=== PATIENT | female | born 1990 | race Caucasian/White ===

== ENCOUNTER 2017-11-22 20:06 | Emergency (ER) | payer SELFPAY ==
[2017-11-22 20:17] VITALS: BP 136/93
--- NOTE | 2017-11-22 21:01 | UC ---
Laceration HPI - HPI Summary HPI Summary: Patient presents to the with a skin avulsion to the left dorsum of the PIP joint which measures approximately 0.7 cm. 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 Bleeding is well controlled. She denies any blood thinners. She has not taken any medication for relief. Full range of motion without pain or limitations. Denies any numbness or tingling. - History Of Current Complaint Chief Complaint: UCLaceration Stated Complaint: FINGER LACERATION Time Seen by Provider: 11/22/17 20:19 Hx Obtained From: Patient Hx Last Menstrual Period: 11/17/17 Mechanism Of Injury: Sharp Trauma Onset/Duration: Sudden Onset Severity: Mild Pain Intensity: 2 Pain Scale Used: 0-10 Numeric Aggravating Factors: Nothing Related History: Occupational Injury - Allergies/Home Medications Allergies/Adverse Reactions: Allergies Allergy/AdvReac Type Severity Reaction Status Date / Time No Known Allergies Allergy Verified 11/22/17 20:17 PMH/Surg Hx/FS Hx/Imm Hx Previously Healthy: Yes - Surgical History Surgical History: None - Family History Known Family History: Positive: Unknown - Social History Occupation: Employed Full-time Lives: Alone Alcohol Use: Rare Substance Use Type: None Smoking Status (MU): Heavy Every Day Tobacco Smoker Review of Systems Constitutional: Negative Skin: Other - skin avulsion to the dorsum of the L index PIP joint ENT: Negative Respiratory: Negative Cardiovascular: Negative Motor: Negative Neurovascular: Negative Musculoskeletal: Negative Is Patient Immunocompromised?: No All Other Systems Reviewed And Are Negative: Yes Physical Exam Triage Information Reviewed: Yes Appearance: Well-Appearing, Well-Nourished Vital Signs: Initial Vital Signs Temp 97.7 F 11/22/17 20:12 Pulse 73 11/22/17 20:12 Resp 16 11/22/17 20:12 BP 136/93 11/22/17 20:12 Pulse Ox 100 11/22/17 20:12 Eye Exam: Normal Eyes: Positive: Conjunctiva Clear ENT Exam: Normal Neck: Positive: Supple Respiratory Exam: Normal Respiratory: Positive: Chest non-tender Cardiovascular Exam: Normal Cardiovascular: Positive: RRR Musculoskeletal: Positive: Strength Intact Psychological: Positive: Normal Response To Family Skin: Positive: Other - skin avulsion to the dorsum of the L index PIP joint Laceration Course/Dx - Course/Dx Course Of Treatment: Patient is evaluated for skin avulsion injury to the left dorsum of the index PIP joint measuring .5cm. Area was cleansed well. Occlusive gauze with tube gauze wrapped. She is to keep the area clean and dry 24 hours. - Differential Dx - Laceration/Wound Differental Diagnoses: Avulsion Provider Diagnoses: Skin avulsion Discharge - Sign-Out/Discharge Documenting (check all that apply): Discharge - Discharge Plan Condition: Stable Disposition: HOME Patient Education Materials: Skin Avulsion (ED) Referrals: No Primary Care Phys,NOPCP [Primary Care Provider] - Additional Instructions: Keep the area covered, clean and dry for approx 24-48 hours, However when working, keep the area covered and dry x 48-72 hours Occlusive gauze first, then wrap with white gauze. - Billing Disposition and Condition Condition: STABLE Disposition: HOME
== END 2017-11-22 20:45 | disposition home or self-care (01) ==
LOC: UCEAST 20:06
DX: S61.211A Laceration without foreign body of left index finger without damage to nail, initial encounter (principal); W29.2XXA Contact with other powered household machinery, initial encounter; Y93.K3 Activity, grooming and shearing an animal; Y92.9 Unspecified place or not applicable; Y99.0 Civilian activity done for income or pay; F17.210 Nicotine dependence, cigarettes, uncomplicated
CPT/HCPCS: 99202; G0463

== ENCOUNTER 2019-02-19 19:03 | Emergency (ER) | payer SELFPAY ==
[2019-02-19 19:28] VITALS: BP 137/86
--- NOTE | 2019-02-19 20:12 | UC ---
Skin Complaint HPI - HPI Summary HPI Summary: Pt presents with c/o for "rash" to back and upper extremities, rash is flat and slightly darker pigmented in color she has had for over 1 year. No vesicles, no erythema. Pt reports that the rash "comes and goes". Also, pt is concerned about tin ride raised dots scattered across upper arms and back. Denies injury or pruritus. - History of Current Complaint Chief Complaint: UCSkin Time Seen by Provider: 02/19/19 19:59 Stated Complaint: RASH Hx Obtained From: Patient Hx Last Menstrual Period: 02/18/2019 ?: No Onset/Duration: Gradual Onset, Lasting Days, Still Present Skin Exposure Onset/Duration: Weeks Ago Timing: Constant Onset Severity: Mild Current Severity: Mild Pain Intensity: 0 Location: Generalized Aggravating Factor(s): Nothing Alleviating Factor(s): Nothing Associated Signs & Symptoms: Positive: Rash - Allergy/Home Medications Allergies/Adverse Reactions: Allergies Allergy/AdvReac Type Severity Reaction Status Date / Time No Known Allergies Allergy Verified 11/22/17 20:17 PMH/Surg Hx/FS Hx/Imm Hx Previously Healthy: Yes - Surgical History Surgical History: None - Family History Known Family History: Positive: Unknown - Social History Occupation: Employed Full-time Lives: With Family Alcohol Use: Rare Substance Use Type: None Smoking Status (MU): Heavy Every Day Tobacco Smoker Review of Systems All Other Systems Reviewed And Are Negative: Yes Constitutional: Positive: Negative Skin: Positive: Rash Eyes: Positive: Negative ENT: Positive: Negative Respiratory: Positive: Negative Cardiovascular: Positive: Negative Gastrointestinal: Positive: Negative Genitourinary: Positive: Negative Motor: Positive: Negative Neurovascular: Positive: Negative Musculoskeletal: Positive: Negative Neurological: Positive: Negative Psychological: Positive: Negative Is Patient Immunocompromised?: No Physical Exam Triage Information Reviewed: Yes Appearance: Well-Appearing Vital Signs: Initial Vital Signs Temp 99.7 F 02/19/19 19:25 Pulse 81 02/19/19 19:25 Resp 18 02/19/19 19:25 BP 137/86 02/19/19 19:25 Pulse Ox 99 02/19/19 19:25 Vital Signs Reviewed: Yes Eye Exam: Normal ENT: Positive: Hearing grossly normal Dental: Positive: Other: - poor dentition Neck exam: Normal Respiratory: Positive: No respiratory distress Musculoskeletal Exam: Normal Neurological Exam: Normal Psychological Exam: Normal Skin Exam: Other - skin color with lighteer and darker toen scattered across back and upper extrmities. also has scattered multiple francis hemangioma's Course/Dx - Diagnoses Provider Diagnosis: Francis hemangioma, Vitiligo Discharge - Sign-Out/Discharge Documenting (check all that apply): Patient Departure All imaging exams completed and their final reports reviewed: No Studies - Discharge Plan Condition: Stable Disposition: HOME Patient Education Materials: Acute Rash (ED) Referrals: [facility] [Outside] No Primary Care Phys,NOPCP [Primary Care Provider] - Additional Instructions: What are francis angiomas? Red moles, or francis angiomas, are common skin growths that can develop on most areas of your body. Theyre also known as senile angiomas or Koehler de Juan spots. Theyre usually found on people aged 30 and older. The collection of small blood vessels inside a francis angioma give them a reddish appearance. Vitiligo ([id number]) is a disease that causes the loss of skin color in blotches. The extent and rate of color loss from vitiligo is unpredictable. It can affect the skin on any part of your body. - Billing Disposition and Condition Condition: STABLE Disposition: Home
== END 2019-02-19 20:28 | disposition home or self-care (01) ==
LOC: UCEAST 19:03
DX: D18.00 Hemangioma unspecified site (principal); L80 Vitiligo; F17.210 Nicotine dependence, cigarettes, uncomplicated
CPT/HCPCS: 99211; G0463

== ENCOUNTER 2022-05-17 01:06 | Inpatient (IN) ==
[2022-05-17] MEDS ORDERED: Lactated Ringers 1000 ml BAG 1,000 ML IV ONE (01:48)
[2022-05-17 02:14] LABS: ABS Lymphocytes 1.9 10^3/ul (1.0-4.8); ABS Monocytes 1.1 10^3/ul (0-0.8); ABS Neutrophils 10.2 10^3/ul (1.5-7.7); Eosinophil % 0.3 %; Hematocrit 35 % (35-47); Hemoglobin 11.9 g/dL (12.0-16.0); Lymphocyte % 14.6 %; Mean Corpuscular HGB Conc 34 g/dL (31-36); Mean Corpuscular Hemoglobin 30 pg (27-31); Mean Corpuscular Volume 90 fL (80-97); Mean Platelet Volume 9.4 fL (7.4-10.4); Platelet Count 146 10^3/uL (150-450); Red Blood Count 3.93 10^6 /uL (3.70-4.87); Red Cell Distribution Width 13 % (10-15); White Blood Count 13.3 10^3/uL (3.5-10.8)
[2022-05-17] MEDS: Lactated Ringers 1000 ml BAG 1,000 ML IV SCH ×2 (02:21→05:57)
[2022-05-17 02:44] LABS: Urine Appearance Cloudy; Urine Bilirubin Negative (Negative); Urine Blood 3+ (Large) (Negative); Urine Color Yellow; Urine Glucose Negative (Negative); Urine Ketones Trace (Negative); Urine Nitrite Negative (Negative); Urine Protein 1+ (30 mg/dL) (Negative); Urine Specific Gravity 1.016 (1.002-1.030); Urine Urobilinogen 0.2 (Negative) (Negative); Urine pH 5.5 (5.0-9.0)
[2022-05-17 02:51] LABS: Urine Benzodiazepine Screen None Detected (None Detect); Urine Cannabinoids Screen None Detected (None Detect); Urine Opiates Screen None Detected (None Detect)
[2022-05-17] MEDS: Calcium Carb (TUMS) 500 mg CHEW TAB PO PRN ×2 (03:36→07:19)
[2022-05-17 03:45] LABS: Urine Bacteria Absent (Absent); Urine Red Blood Cell 3+(>10/hpf) (Absent); Urine Squamous Epithelial Cell Present (Absent); Urine White Blood Cell 3+(>20/hpf) (Absent)
[2022-05-17] MEDS ORDERED: Promethazine INJ(RESTRICTED) 25 MG/ML 1 ml VIAL IV ONE (04:35)
[2022-05-17] MEDS ORDERED: Nalbuphine 10 MG/ML 1 ML VIAL IV ONE (04:35)
[2022-05-17] MEDS ORDERED: OBEPIDURAL (200 ML) 0 ML EPIDURAL ONE (06:13)
[2022-05-17] MEDS ORDERED: Bupivacaine 0.25% SDV PF 10 ML VIAL INJ ONE (06:27)
[2022-05-17] MEDS ORDERED: Oxytocin in LR 20,000 MILLI.UNIT/1,000 ML BAG IV ONE (08:01)
[2022-05-17] MEDS ORDERED: Dibucaine 1% OINT 28.35 GM TUBE ONE (08:28)
[2022-05-17] MEDS ORDERED: Witch Hazel PAD JAR ONE (08:28)
[2022-05-17] MEDS: Oxytocin in LR 20,000 MILLI.UNIT/1,000 ML BAG IV SCH ×2 (09:16→11:00)
[2022-05-17] MEDS ORDERED: Methylergonovine 0.2 mg AMPULE 1 ml AMP IM ONE (09:35)
[2022-05-17] MEDS ORDERED: Glycerin ADULT 2.4 gm SUPP PR PRN (09:35)
[2022-05-17] MEDS ORDERED: Witch Hazel PAD JAR TOPICAL PRN (09:35)
[2022-05-17] MEDS ORDERED: Lidocaine 1% VIAL 10 MG/ML VIAL ONE (10:03)
[2022-05-17] MEDS: Dibucaine 1% OINT 28.35 GM TUBE PR PRN (10:13)
[2022-05-18 06:21] LABS: ABS Eosinophils 0.1 10^3/ul (0-0.6); ABS Lymphocytes 2.3 10^3/ul (1.0-4.8); ABS Monocytes 1.3 10^3/ul (0-0.8); ABS Neutrophils 8.3 10^3/ul (1.5-7.7); Eosinophil % 0.8 %; Hematocrit 25 % (35-47); Hemoglobin 8.3 g/dL (12.0-16.0); Lymphocyte % 18.8 %; Mean Corpuscular HGB Conc 34 g/dL (31-36); Mean Corpuscular Hemoglobin 31 pg (27-31); Mean Corpuscular Volume 91 fL (80-97); Mean Platelet Volume 8.9 fL (7.4-10.4); Platelet Count 132 10^3/uL (150-450); Red Blood Count 2.69 10^6 /uL (3.70-4.87); Red Cell Distribution Width 13 % (10-15)
[2022-05-18] MEDS: Dibucaine 1% OINT 28.35 GM TUBE PR PRN (21:43)
[2022-05-19 09:23] VITALS: BP 116/68
== END 2022-05-19 12:55 | disposition home or self-care (01) | DRG 806 ==
LOC: MCHOBOUT 01:06 → MCHOB 02:01
PROVIDERS: ADMIT Midwife; ATTEND Midwife